=== PATIENT | male | born 1990 | race Caucasian/White ===

== ENCOUNTER → 2020-04-30 | Outpatient (REF) | payer OTHER | LOC: M LAB 21:06 | PROVIDERS: ATTEND Physician Assistant Medical | DX: Z20.828 Contact with and (suspected) exposure to other viral communicable diseases (principal) ==

== ENCOUNTER 2021-02-24 16:50 | Emergency (ER) | payer OTHER ==
[~2021-02-24] VITALS: Ht 188 cm; Wt 87.7 kg
[2021-02-24 17:20] VITALS: BP 123/60
--- NOTE | 2021-02-24 17:44 | REP ---
INDICATION: injury fall, left thumb. COMPARISON: None. TECHNIQUE: Four views of the left hand were obtained. FINDINGS: There is an apparent avulsion fracture of the head of the 1st metacarpal, at the MCP joint, on its dorsomedial aspect. IMPRESSION: Avulsion fracture of the 1st metacarpal as described. <Electronically signed by Edward Painting > 02/24/21 [id number]
== END 2021-02-24 20:28 | disposition home or self-care (01) ==
LOC: M ED 16:50
DX: S62.292A Other fracture of first metacarpal bone, left hand, initial encounter for closed fracture (principal); W19.XXXA Unspecified fall, initial encounter; Y92.89 Other specified places as the place of occurrence of the external cause; Y93.9 Activity, unspecified; Y99.1 Military activity

== ENCOUNTER → 2021-07-31 | Outpatient (REF) | LOC: M PLAIMG 09:53 | PROVIDERS: ATTEND Internal Medicine | DX: M79.642 Pain in left hand (principal) ==